=== PATIENT | female | born 1995 | race Caucasian/White ===

== ENCOUNTER → 2019-05-11 16:08 | Outpatient (CLI) | payer BC, SELFPAY ==
--- NOTE | ~2019-05-11 | XR_ITS ---
XR foot LT min 3V DATE: 05/11/2019 16:21 INDICATION: Foot pain TECHNIQUE: 4 views COMPARISON: None FINDINGS: There is mild osteoarthritis at the first metatarsophalangeal joint. No fracture, dislocation, periosteal reaction or bone destruction is detected. IMPRESSION: Mild osteoarthritis at first metatarsophalangeal joint Reviewed, dictated and finalized at location B. 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
== END ==
PROVIDERS: PCP Nurse Practitioner Family; Visit Provider Nurse Practitioner Family
DX: M19.072 Primary osteoarthritis, left ankle and foot (principal)
CPT/HCPCS: 73630

== ENCOUNTER 2019-10-01 11:24 | Outpatient (CLI) | payer BC, SELFPAY ==
--- NOTE | ~2019-10-01 | XR_ITS ---
XR hysterosalpingogram 10/01/2019 12:25 Indication: Infertility TECHNIQUE: Hysterosalpingogram was performed by Dr. Annamarie Swann MD with fluoroscopic ann christian. I was present to obtain fluoroscopic images.4 fluoroscopic images. DAP is 3.45. 0.2 minutes of f luoroscopy. FINDINGS: Fluoroscopic images demonstrates normal appearing endometrial cavity which has been cannula courtney. Upon injection of contrast, both fallopian tubes opacify and are normal in appearance. There i s free spillage bilaterally. Uterus is without evidence of synechia. IMPRESSION: 1: Patent fallopian tubes. Reviewed, dictated and finalized at location A. IMPRESSION: 1: Patent fallopian tubes.
== END 2019-10-01 11:25 | disposition home or self-care (01) ==
PROVIDERS: PCP Nurse Practitioner Family; Visit Provider Obstetrics & Gynecology Gynecology
DX: Z31.41 Encounter for fertility testing (principal)
CPT/HCPCS: 58340; 74740; Q9966

== ENCOUNTER → 2020-11-13 13:46 | Outpatient (CLI) | payer BC, SELFPAY ==
--- NOTE | ~2020-11-13 | US_ITS ---
EXAMINATION: US OB <= 14 weeks fetus DATE: 11/13/2020 14:07 INDICATION: Spotting during first trimester TECHNIQUE: Real-time ultrasound of the pelvis was performed. COMPARISON: None. FINDINGS: There is a single living fetus in variable presentation. The placenta is anterior and covers the inte rnal cervical os. heart rate is 151 beats per minute (bpm). cardiac activity and m ovement are noted. The following biometric data were obtained: Biparietal diameter (BPD): 2.5 cm; head circumference (HC): 10.3 cm; abdominal circumference (AC): 7. 6 cm; femur length (FL): 1.3 cm. These measurements are concordant. Estimated weight is 88 g +/- 13 g, which correlates with the 14th percentile when 05/11/2021 is u sed as estimated date of delivery. As single measurements, these parameters are each equal to the following estimated gestational ages w ith ranges of +/- 2 standard deviations: BPD: 14 weeks 1 days ( 3 weeks 1 days - 15 weeks 4 days). HC: 14 weeks 6 days ( 13 weeks 4 days - 16 weeks 0 days). AC: 14 weeks 1 days ( 12 weeks 3 days - 15 weeks 5 days). FL: 13 weeks 6 days ( 12 weeks 3 days - 15 weeks 1 days). estimated gestational age based solely on measurements from this exam is 14 weeks 2 days +/- 1 weeks 0 days. IMPRESSION: 1. Single living fetus in variable presentation. 2. Estimated weight is 88 g +/- 13 g, which correlates with the 14th percentile when 05/11/2021 i s used as estimated date of delivery. 3. Placenta previa Reviewed, dictated and finalized at location B. IMPRESSION: 1. Single living fetus in variable presentation. 2. Estimated weight is 88 g +/- 13 g, which correlates with the 14th perc entile when 05/11/2021 is used as estimated date of delivery. 3. Placenta previa
== END ==
PROVIDERS: Visit Provider Nurse Practitioner
DX: O26.851 Spotting complicating pregnancy, first trimester (principal); Z3A.14 14 weeks gestation of pregnancy
CPT/HCPCS: 76801

== ENCOUNTER → 2020-12-11 10:29 | Outpatient (CLI) | payer BC, SELFPAY ==
--- NOTE | ~2020-12-11 | US_ITS ---
EXAMINATION: US OB /maternal detail EXAM DATE: 12/11/2020 11:03 INDICATION: Complete placenta previa NOS or without hemorrhage, ANATOMY . 2nd trimester. TECHNIQUE: Pelvic obstetrical transabdominal sonogram was performed by a technologist. There are mu ltiple grayscale and Doppler images available for interpretation. Comparison is made to prior examina tion from 11/13/2020. FINDINGS: There is a single fetus identified in vertex presentation with a heart rate of 141 beats pe r minute. The placenta is located in the anterior position. Placental margin to internal cervical os distance is 6.5 cm. There is no sonographic evidence of retroplacental hemorrhage identified. There i s subjectively expected amount of amniotic fluid. BIOMETRIC DATA: Biparietal diameter (BPD): 4.0 cm ----------------> 18 weeks 1 day. Head circumference (HC): 15.4 cm ----------------> 18 weeks 2 days. Abdominal circumference (AC): 12.7 cm ----------> 18 weeks 2 days. Femur length (FL): 2.6 cm --------------------------> 17 weeks 6 days. These measurements are concordant. HC/AC ratio is 1.21 (The 5th -- 95th percentile range is 1.08-1.27. Estimated weight is 225 g +/- 34 g. This is the 36th percentile when the currently reported cl inical gestation age 18 weeks 2 days, clinical estimated date of delivery (TOBY-OPE) 05/12/2021 is used. estimated gestational age based on measurements from this exam is 18 weeks 1 day, with an adam mated date of delivery (TOBY-AUA) 05/13. ANATOMIC SURVEY: The following anatomy is identified and is sonographically normal in appearance: Extremities Kidneys Three-vessel cord Bladder Diaphragm Cervical thoracic and lumbar spine. Following structures not well visualized ventricles, cerebellum, cisterna magna, nuchal fold, upper l ip, heart. IMPRESSION: 1. Single fetus in vertex presentation with heart rate 141 beats per minute. 2. Estimated weight of 225 grams, 36th percentile using the currently reported clinical gestat ion age of 18 weeks 2 days, TOBY(OPE) 05/12. 3. Anteriorly located placenta. 4. Incomplete anatomic survey. Reviewed, dictated and finalized at location A. IMPRESSION: 1. Single fetus in vertex presentation with heart rate 141 beats per minute. 2. Estimated weight of 225 grams, 36th percentile using the currently re ported clinical gestation age of 18 weeks 2 days, TOBY(OPE) 05/12. 3. Anteriorly located placenta. 4. Incomplete anatomic survey.
== END ==
PROVIDERS: Visit Provider Obstetrics & Gynecology Gynecology
DX: O44.02 Complete placenta previa NOS or without hemorrhage, second trimester (principal); Z3A.00 Weeks of gestation of pregnancy not specified
CPT/HCPCS: 76805

== ENCOUNTER → 2021-01-08 11:20 | Outpatient (CLI) | payer OTHER, SELFPAY ==
--- NOTE | ~2021-01-08 | US_ITS ---
US OB follow up DATE: 01/08/2021 12:09 INDICATION: anatomy follow-up TECHNIQUE: Real-time imaging and Doppler analysis COMPARISON: 12/11/2020 obstetrical ultrasound; the ventricles, cerebellum, cisterna magna, nuchal fold, upper lip and heart were not well visualized on 12/11/2020 obstetrical ultrasound examination FINDINGS: Live arango intrauterine gestation, fetus in vertex presentation. heart rate of 13 8 bpm. Anterior placenta, lower margin 8.1 cm above the internal os. Subjectively normal amount of amniotic fluid. Nuchal fold appears normal. Cisterna magna and cerebellum appear normal. No cerebral ventriculo megaly is evident. 4 chamber heart. IMPRESSION: Unremarkable anatomy screen Reviewed, dictated and finalized at Location A. Reviewed, dictated and finalized at location A. IMPRESSION: Unremarkable anatomy screen
== END ==
PROVIDERS: Visit Provider Obstetrics & Gynecology Gynecology
DX: Z36.2 Encounter for other antenatal screening follow-up (principal); Z3A.00 Weeks of gestation of pregnancy not specified
CPT/HCPCS: 76816

== ENCOUNTER → 2021-03-19 10:48 | Outpatient (CLI) | payer OTHER, SELFPAY ==
--- NOTE | ~2021-03-19 | US_ITS ---
EXAMINATION: US OB follow up DATE: 03/19/2021 11:10 INDICATION: Size greater than dates during third trimester TECHNIQUE: Real-time ultrasound of the pelvis was performed. The interpreting radiologist was not pre sent for the study. COMPARISON: 01/08/2021 FINDINGS: There is a single living fetus in transverse lie. The placenta is anterior and 3.6 cm from the internal cervical os. cardiac activity and movement are noted. heart rate is 14 0 beats per minute (bpm). The amniotic fluid index is 12.3 cm which is normal. The following biometric data were obtained: Biparietal diameter (BPD): 8.5 cm; head circumference (HC): 30.3 cm; abdominal circumference (AC): 30 .2 cm; femur length (FL): 6.0 cm. These measurements are the femoral length to abdominal circumference ratio and femoral length to bipa rietal diameter ratio greater than two standard deviations below the mean. Estimated weight is 2173 g +/- 325 g, which correlates with the 74th percentile when 05/12/2021 i s used as estimated date of delivery. As single measurements, these parameters are each equal to the following estimated gestational ages w ith ranges of +/- 2 standard deviations: BPD: 34 weeks 2 days ( 31 weeks 2 days - 37 weeks 3 days). HC: 33 weeks 5 days ( 30 weeks 5 days - 36 weeks 5 days). AC: 34 weeks 1 days ( 31 weeks 1 days - 37 weeks 1 days). FL: 31 weeks 2 days ( 28 weeks 3 days - 34 weeks 2 days). estimated gestational age based solely on measurements from this exam is 33 weeks 3 days +/- 2 weeks 2 days. IMPRESSION: 1. Single living fetus in transverse lie. 2. Estimated weight is 2173 g +/- 325 g, which correlates with the 74th percentile when 2 is used as estimated date of delivery. 3. Femoral length to abdominal circumference ratio and femoral length to biparietal diameter ratio gr eater than two standard deviations below the mean. Reviewed, dictated and finalized at location A. 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 Single living fetus in transverse lie. 2. Estimated weight is 2173 g +/- 325 g, which correlates with the 74th p ercentile when 05/12/2021 is used as estimated date of delivery. 3. Femoral length to abdominal circumference ratio and femoral length to bipari etal diameter ratio greater than two standard deviations below the mean.
== END ==
PROVIDERS: Visit Provider Obstetrics & Gynecology Gynecology
DX: O36.63X0 Maternal care for excessive fetal growth, third trimester, not applicable or unspecified (principal); Z3A.33 33 weeks gestation of pregnancy
CPT/HCPCS: 76816

== ENCOUNTER → 2021-04-30 11:17 | Outpatient (CLI) | payer OTHER, SELFPAY ==
--- NOTE | ~2021-04-30 | US_ITS ---
EXAMINATION: US OB follow up DATE: 04/30/2021 11:36 INDICATION: Size greater than dates. TECHNIQUE: Real-time ultrasound of the pelvis was performed. COMPARISON: Ultrasound 03/19/2021 FINDINGS: There is a single living fetus in vertex presentation. The placenta is anterior, 10.8 cm from the ce rvix. heart rate is 140 beats per minute (bpm). The amniotic fluid index is 11.2, which is norm al. The following biometric data were obtained: Biparietal diameter (BPD): 9.4 cm; head circumference (HC): 33.5 cm; abdominal circumference (AC): 37 .6 cm; femur length (FL): 7.0 cm. These measurements are discordant with FL/AC lower than 2 standard deviations of the mean. Estimated weight is 3862 g +/- 570 g, which correlates with the 91st percentile when 05/12/21 is used as estimated date of delivery. As single measurements, these parameters are each equal to the following estimated gestational ages w ith ranges of +/- 2 standard deviations: BPD: 38 weeks 3 days (35 weeks 1 days - 41 weeks 4 days). HC: 38 weeks 2 days (35 weeks 4 days - 41 weeks 0 days). AC: 41 weeks 4 days (38 weeks 4 days - 44 weeks 4 days). FL: 35 weeks 6 days (33 weeks 0 days - 38 weeks 6 days). estimated gestational age based solely on measurements from this exam is 38 weeks 4 days +/- 2 weeks 5 days. IMPRESSION: 1. Single living fetus in vertex presentation. 2. Large for gestational age. Estimated weight is 3862 g +/- 570 g, which correlates with the 91st percentile when 05/12/21 is used as estimated date of delivery. This date was set by ultrasound on 11/13/2020. 3. Discordant biometrics with low FL/AC. Reviewed, dictated and finalized at location A. OGRAPHER IMPRESSION: 1. Single living fetus in vertex presentation. 2. Large for gestational age. Estimated weight is 3862 g +/- 570 g, whic h correlates with the 91st percentile when 05/12/21 is used as estimated date of delivery. This date was set by ultrasound on 11/13/2020. 3. Discordant biometrics with low FL/AC.
== END ==
PROVIDERS: Visit Provider Obstetrics & Gynecology Gynecology
DX: O36.63X3 Maternal care for excessive fetal growth, third trimester, fetus 3 (principal); Z3A.38 38 weeks gestation of pregnancy
CPT/HCPCS: 76816

== ENCOUNTER 2021-05-03 08:25 | Outpatient (RCR) | payer OTHER, SELFPAY ==
[2021-04-19 08:24] VITALS: BP 121/77; PULSE 92
[2021-04-21 16:43] VITALS: BP 137/86; PULSE 83
[2021-04-26 08:50] VITALS: BP 120/74; PULSE 90
[2021-04-28 17:27] LABS: Basophils Percent Auto 0.2 % (0.2-1.2); Eosinophils Absolute Auto 0.1 K/mm3 (0-0.3); Eosinophils Percent Auto 0.8 % (0-4.4); Hematocrit 35.7 % (37.0-47.0); Hemoglobin 11.5 g/dL (12.0-15.0); Immature Granulocyte Absolute 0.06 K/mm3 (0.00-0.031); Immature Granulocyte Percent A 0.5 % (0-0.5); Lymphocytes Absolute Auto 2.52 K/mm3 (0.9-3.2); Lymphocytes Percent Auto 19.4 % (18.3-44.2); Mean Corpuscular HGB Conc 32.2 g/dl (32-36); Mean Corpuscular Hemoglobin 31.3 pg (26-34); Mean Platelet Volume 11.9 fl (7.4-10.4); Monocytes Absolute Auto 1.3 K/mm3 (0.1-0.6); Monocytes Percent Auto 9.8 % (2.6-8.5); Neutrophils Percent Auto 69.3 % (45.5-73.1); Platelet Count Result 249 k/mm3 (150-375); Red Blood Count 3.68 M/mm3 (4.2-5.4); Red Cell Distribution Width 14.5 % (11.5-14.5)
[2021-04-28 17:43] LABS: Alanine Aminotransferase 15 U/L (4-35); Albumin Level 3.6 g/dL (3.5-5.1); Alkaline Phosphatase 122 U/L (38-126); Anion Gap 6 mmol/L (8-16); Aspartate Amino Transferase 22 U/L (14-36); Bilirubin,Total 0.3 mg/dL (0.2-1.3); Blood Urea Nitrogen 11 mg/dL (7-17); Calcium 9.2 mg/dL (8.4-10.2); Carbon Dioxide 24 mmol/L (22-30); Chloride 105 mmol/L (98-107); Estimated Glomerular Filt Rate > 60; Glucose 104 mg/dL (65-110); Sodium 135 mmol/L (137-145); Uric Acid 4.6 mg/dL (2.5-7.5)
[2021-04-28 17:50] LABS: Add Urine Microscopic? YES; Appearance Urine Clear (Clear); Bacteria Urine 1+ /hpf; Bilirubin Urine Negative (Negative); Blood Urine Negative (Negative); Color Urine Yellow (Yellow); Glucose Urine UA Negative (Negative); Ketones Urine Trace mg/dL (Negative); Leukocyte Esterase Ur 1+ LEU/UL (NEGATIVE); Mucus Urine Rare /lpf; Nitrate Urine Negative (Negative); Protein Urine Negative (Negative); Specific Grav Ur 1.028 (1.001-1.035); Squamous Epithelial Cell Urine Moderate /hpf (Few); Urobilinogen Urine Negative mg/dL (<2.0)
[2021-04-28 18:13] LABS: Creatinine Urine 195.5 mg/dL
[2021-04-28 18:21] LABS: Total Protein Urine Random < 5 mg/dL; Ur Ttl Prot Creatinine Ratio < 0.03 mg/mg (0-0.20)
[2021-04-28 18:30] VITALS: BP 122/87; PULSE 98
[2021-05-03 09:05] VITALS: BP 134/81; PULSE 109
== END 2021-05-26 09:31 | disposition home or self-care (01) ==
LOC: ANHOBOP 08:25
PROVIDERS: Visit Provider Obstetrics & Gynecology Gynecology
DX: O24.419 Gestational diabetes mellitus in pregnancy, unspecified control (principal); Z3A.36 36 weeks gestation of pregnancy; Z3A.37 37 weeks gestation of pregnancy; Z3A.38 38 weeks gestation of pregnancy
CPT/HCPCS: 36415; 59025; 80053; 81001; 82570; 84156; 84550; 85025; 87086; 87088

== ENCOUNTER 2021-05-04 23:49 | Inpatient (IN) | payer OTHER, SELFPAY ==
[2021-05-05] VITALS (137 sets, daily range): BP systolic 107–180; BP diastolic 55–114; PULSE 25–139; TEMP 36.2–37.5; O2SAT 96–100; BMI 48.7
--- NOTE | 2021-05-05 00:39 | LDADM ---
This patient, Rita Smith, was admitted to Labor/Delivery/Recovery 109 on 05/04/21 at 23:49. Plans for labor, pain management and were discussed with patient. Patient/family oriented to hospital policies and general routines including ID bracelet, bed and alarms, visiting hours, pain management, procedures, bathroom and other care routines, personal items, smoking policy, room service/diet and guest tray routines, security routines, and visiting hours. Patient/Family are encouraged to report perceived risks to care and to ask questions if they do not understand what they are told or what they should do. See OBIX for further documentation.
[2021-05-05 00:50] LABS: Basophils Percent Auto 0.2 % (0.2-1.2); Eosinophils Absolute Auto 0.1 K/mm3 (0-0.3); Eosinophils Percent Auto 0.7 % (0-4.4); Hematocrit 35.4 % (37.0-47.0); Hemoglobin 11.7 g/dL (12.0-15.0); Immature Granulocyte Percent A 0.7 % (0-0.5); Lymphocytes Absolute Auto 2.69 K/mm3 (0.9-3.2); Lymphocytes Percent Auto 20.1 % (18.3-44.2); Mean Corpuscular HGB Conc 33.1 g/dl (32-36); Mean Corpuscular Volume 96.7 fl (80-100); Mean Platelet Volume 11.9 fl (7.4-10.4); Monocytes Absolute Auto 1.2 K/mm3 (0.1-0.6); Monocytes Percent Auto 9.1 % (2.6-8.5); Neutrophils Absolute Auto 9.3 K/mm3 (1.3-6.7); Neutrophils Percent Auto 69.2 % (45.5-73.1); Platelet Count Result 244 k/mm3 (150-375); Red Blood Count 3.66 M/mm3 (4.2-5.4); Red Cell Distribution Width 14.6 % (11.5-14.5); White Blood Count 13.4 K/mm3 (4.5-10.0)
[2021-05-05] MEDS: LACTATED RINGERS 1,000 ML 125 ML IV CONT ×3 (02:07→21:54)
[2021-05-05] MEDS: AMPICILLIN 2 GM/NS 100 ML 2 GM/100 ML BAG IVPB (02:08)
[2021-05-05] MEDS: DINOPROSTONE 10 MG VAG INSERT VAGINAL (02:12)
[2021-05-05 02:18] LABS: Glucose Point of Care 104 mg/dl (65-105)
[2021-05-05] MEDS: AMPICILLIN 1 GM/NS 50 ML 1 GM/50 ML BAG IVPB ×5 (06:19→21:51)
[2021-05-05 06:22] LABS: Glucose Point of Care 86 mg/dl (65-105)
--- NOTE | 2021-05-05 07:42 | WPDOBADMIT ---
Obstetrics - Admit Note Admission Note: record reviewed. No pertinent additions to the history and/or any subsequent changes in the physical findings that are not consistent with the expected course of the were found. Additions to the history and/or subsequent changes in the physical findings follow. None.Here for MIL at 39 wks with GDMA2. Cervix FT/th last pm per RN when cervadil placed. FHTs reactive.
[2021-05-05 10:33] LABS: Glucose Point of Care 97 mg/dl (65-105)
--- NOTE | 2021-05-05 12:36 | PM.OBPNLAB ---
Pain Control Date/time seen: 05/05/21 12:36 Pain control: tolerating well Pelvic Exam Dilation (cm): 1 Effacement (%): 70 station: -3 Comments: Cervadil removed. AROM with clear fluid. Status status: Category l Assessment and Plan Assessment: induction ongoing Comments: start pitocin
[2021-05-05 12:58] LABS: Glucose Point of Care 105 mg/dl (65-105)
[2021-05-05] MEDS: OXYTOCIN 30 UNITS/NS 500 ML 30 UNITS/500 ML BAG IV CONT (13:14)
[2021-05-05 16:49] LABS: Rapid Plasma Reagin Non-Reactive (NonReactive)
[2021-05-05 17:16] LABS: Glucose Point of Care 76 mg/dl (65-105)
--- NOTE | 2021-05-05 19:26 | WPDANESEPP ---
Anes - Eval Pre Procedure Procedure: Labor epidural Date/Time: 05/05/21 19:26 Surgeon: Hari pain with contractions Pre Op Diagnosis: IOL Patient Data Age: 26 Gender: F Height: 1.65 m Weight: 133 kg Last Vital Signs Temp 98 F 05/05/21 18:09 Pulse 98 05/05/21 19:17 BP 149/105 H 05/05/21 19:17 Allergies Allergy/AdvReac Type Severity Reaction Status Date / Time No Known Allergies Allergy Mild Unverified 03/21/08 20:46 Home Medications Medication Instructions Recorded Confirmed Type metformin 500 mg tablet 500 mg PO DAILY 05/07/19 04/16/21 History PNV cmb#95-ferrous fumarate-FA 1 tablet PO DAILY 04/16/21 04/16/21 History [] insulin NPH isoph U-100 human 12 unit SUBCUT HS 05/05/21 05/05/21 History [Humulin N NPH U-100 Insulin] Laboratory Tests 05/05/21 05/05/21 05/05/21 00:35 00:35 00:35 WBC 13.4 K/mm3 H K/mm3 (4.5-10.0) RBC 3.66 M/mm3 L M/mm3 (4.2-5.4) Hgb 11.7 g/dL L g/dL (12.0-15.0) Hct 35.4 % L % (37.0-47.0) MCV 96.7 fl fl (80-100) MCH 32.0 pg pg (26-34) MCHC 33.1 g/dl g/dl (32-36) RDW 14.6 % H % (11.5-14.5) Plt Count 244 k/mm3 k/mm3 (150-375) MPV 11.9 fl H fl (7.4-10.4) Immature Gran % (Auto) 0.7 % H % (0-0.5) Neut % (Auto) 69.2 % % (45.5-73.1) Lymph % (Auto) 20.1 % % (18.3-44.2) Stanton % (Auto) 9.1 % H % (2.6-8.5) Eos % (Auto) 0.7 % % (0-4.4) Baso % (Auto) 0.2 % % (0.2-1.2) Lymph # (Auto) 2.69 K/mm3 K/mm3 (0.9-3.2) Stanton # (Auto) 1.2 K/mm3 H K/mm3 (0.1-0.6) Eos # (Auto) 0.1 K/mm3 K/mm3 (0-0.3) Baso # (Auto) 0.0 K/mm3 K/mm3 (0.0-0.1) Abs Immat Gran (auto) 0.10 K/mm3 H K/mm3 (0.00-0.031) Absolute Neuts (auto) 9.3 K/mm3 H K/mm3 (1.3-6.7) Absolute Nucleated RBC 0.0 K/mm3 K/mm3 (0.0-0.012) Nucleated RBC % 0.0 % % (0.0-0.2) POC Capillary Glucose RPR Non-reactive (NonReactive) Blood Type O Positive Antibody Screen Negative 05/05/21 05/05/21 05/05/21 02:04 06:18 10:30 WBC RBC Hgb Hct MCV MCH MCHC RDW Plt Count MPV Immature Gran % (Auto) Neut % (Auto) Lymph % (Auto) Stanton % (Auto) Eos % (Auto) Baso % (Auto) Lymph # (Auto) Stanton # (Auto) Eos # (Auto) Baso # (Auto) Abs Immat Gran (auto) Absolute Neuts (auto) Absolute Nucleated RBC Nucleated RBC % POC Capillary Glucose 104 mg/dl mg/dl 86 mg/dl mg/dl 97 mg/dl mg/dl (65-105) (65-105) (65-105) RPR Blood Type Antibody Screen 05/05/21 05/05/21 12:55 17:10 WBC RBC Hgb Hct MCV MCH MCHC RDW Plt Count MPV Immature Gran % (Auto) Neut % (Auto) Lymph % (Auto) Stanton % (Auto) Eos % (Auto) Baso % (Auto) Lymph # (Auto) Stanton # (Auto) Eos # (Auto) Baso # (Auto) Abs Immat Gran (auto) Absolute Neuts (auto) Absolute Nucleated RBC Nucleated RBC % POC Capillary Glucose 105 mg/dl mg/dl 76 mg/dl mg/dl (65-105) (65-105) RPR Blood Type Antibody Screen Patient hx anesthesia problems: none Family hx anesthesia problems: none Results Review: All pre-operative results and documents have been reviewed as part of the pre-operative evaluation. [facility] Past Medical History Medical History (Reviewed 05/05/21 @ 19:[address]
[2021-05-05 21:59] LABS: Glucose Point of Care 72 mg/dl (65-105)
[2021-05-06] VITALS (117 sets, daily range): BP systolic 104–179; BP diastolic 42–125; PULSE 78–132; RESP 18; TEMP 36.4–37.4; O2SAT 79–100
[2021-05-06] MEDS: AMPICILLIN 1 GM/NS 50 ML 1 GM/50 ML BAG IVPB ×2 (02:04→05:57)
[2021-05-06 02:15] LABS: Glucose Point of Care 82 mg/dl (65-105)
--- NOTE | 2021-05-06 06:49 | PM.OBPRVD ---
OB - Delivery Note Procedure Delivery date: 05/06/21 Procedure: events: Gestational Diabetes and Labor Induction Intrapartal events: None Induction method: AROM, per pitocin protocol and per cervidil protocol Delivery monitor: external FHT and internal uterine Route of delivery: Laceration Description: Perineal - 2nd Degree Delivery repair: vicryl (3-0) Specimen: No Quantitative Blood Loss (ml): 350 Anesthesia type: Epidural Disposition: floor Baby Date of : 05/06/21 Weeks of gestation at delivery: 39 gender: Female Weight (pounds): 7 Weight (ounces): 15 presentation: vertex position: Right Occiput Anterior Placenta delivery description: Spontaneous cord vessel description: 3 Vessels score one minute: 9 score five minutes: 9
--- NOTE | 2021-05-06 06:51 | PM.OBDSVD ---
DS: Admitting Diagnosis Discharge Date 05/08/21 Admitting Diagnosis GDMA2; IUP 39 wks for SARAH DS: Discharge Diagnosis Discharge Diagnosis (1) (normal spontaneous vaginal delivery): Code(s): O80 - Encounter for full-term uncomplicated delivery Status: Acute (2) GDM, class A2: Code(s): O24.419 - Gestational diabetes mellitus in , unspecified control Status: Acute OB - DS: Summary OB Procedures : NST and Ultrasound OB Procedures Intrapartum: Spontaneous Vag Delivery OB Procedures: : None Peripartum Data Delivery Method: Natural Vaginal Laceration Description: Perineal - 2nd Degree complications: none Status at Discharge Functional status at discharge: independent ambulation Overall status at discharge: patient is progressing back to baseline Time Spent with Patient Time attestation: Total time spent providing and/or coordinating discharge services: DS: Data Data Completed and Pending Labs on day of discharge: Labs from last 24 hours 05/06/21 05/05/21 05/05/21 02:05 21:51 17:10 POC Capillary Glucose 82 72 76 RPR 05/05/21 05/05/21 05/05/21 12:55 10:30 00:35 POC Capillary Glucose 105 97 RPR Non-reactive Discharge Plan Discharge Attending physician on discharge: Annamarie Swann Discharging Clinician: Annamarie Swann Anticipated Discharge Date/Time: 05/08/21 06:52 Patient Disposition: Home, Self-Care Activity: may shower and pelvic rest Diet: regular Patient Instructions: Antibiotic Form Stand Alone Forms: General Discharge Information Follow-up/Referrals: Annamarie Swann MD [Physician] - 6 Weeks Discharge Medications: Continued metformin 500 mg tablet 500 mg PO DAILY RF: 0 PNV cmb#95-ferrous fumarate-FA [] 28 mg iron- 800 mcg Tablet 1 tablet PO DAILY RF: 0 Discontinued Humulin N NPH U-100 Insulin 100 unit/mL suspension 12 unit SUBCUT HS RF: 0 Date of admission: 05/04/21 23:49 Primary Care Provider: Edgar Kong Admitting Provider: Annamarie Swann Attending physician on admission: Annamarie Swann Condition: Stable Care Plan Goals: Plans condoms for bc
[2021-05-06] MEDS: OXYTOCIN 30 UNITS/NS 500 ML 30 UNITS/500 ML BAG 999 UNITS IV CONT (06:53)
[2021-05-06] MEDS: IBUPROFEN 600 MG TABLET PO ×2 (08:59→17:25)
[2021-05-06] MEDS: BENZOCAINE 20% AER SPR (*SP) 56 GM CAN 1 SPRAY TOPICAL (09:00)
[2021-05-06] MEDS: WITCH HAZEL 40 PADS 1 PAD TOPICAL (09:00)
--- NOTE | 2021-05-06 09:50 | OBPPTRN ---
Patient transferred to post room # 280 via wheelchair accompanied by spouse and . PT and Support person present and both recipients of introductions and education. No barriers to learning identified at this time. PT and spouse received instructions per one to one discussion, mom baby care guide and demonstrations this shift. Oriented to unit, room, information board, rooming in, admission packet and security measures. Patient verbalizes understanding.
--- NOTE | 2021-05-06 14:33 | PC.NURSE ---
0720 - Reported to RN 40 min went well. 1125 - 1215 Introductions were made and mother led the discussion of her desires and plans for feeding her baby. Mom has a history of PCOS and bilateral breast have peau d' orange present that mom states has been there since . Mom has large breast with flat nipple that ora between a grade 1-2. Reviewed handwashing to prevent infection before and after taking care of her baby. Mother verbalizes she is unable to independently latch at this time. Discussed how to watch for early feeding cues, place infant skin to skin, stimulating with touch, talk and hand expressed colostrum, then feeding baby when infant is ready or every 2-3 hours. Mother demonstrated learning of hand expression with no colostrum at this time. Educated parents on the production of milk. Reviewed positioning/alignment with the use of the visuals in the mom and baby guide. Encouraged mother with infant skin to skin, nipple stretching and hand expression. Assisted mom with infant to the right breast in football position using nipple to nose with asymmetrical 140-degree latch. attempts to latch, mom denies pain, RN hears clicking, detached and nipple misshaped. Multiple attempts to achieve effective latching on both breast. Reviewed there is to be no pain with , how to detach from the breast, visuals to watch for to confirm effective . Reviewed effective latching with resources tool/handout/mom and baby guide. Nipple tenderness is relieved with improving positioning and effective latching which is rare. has wide gape, sometimes takes 1-3 effective sucks, then repositions to the nipple. Multiple attempts for 30 min. Mom is hungry and tired. Infant placed skin to skin. Use of warm, wet compress to nipples and air dry for improved comfort. was unable to maintain effective latch. Discussed risks and benefits of tools and supplementing. Reviewed intake, output, weight, jaundice and blood sugar of infant. Reviewed moms medical history, labor experience, expectations and milk production. Mother has verbalized understanding watching for feeding cues for responsive feeding or how to stimulate to initiate from the start of the last feeding. Mother voiced understanding to feed when she sees feeding cues, 8-12 times in 24 hours approximately every 2-3 hours from the start of the last feeding or she has discomfort with nursing. Reported to primary RN.
[2021-05-06] MEDS: DOCUSATE SODIUM 100 MG CAPSULE PO (17:25)
[2021-05-06] MEDS: LANOLIN (LANSINOH) 7.5 GM CREAM 1 APPLIC TOPICAL (17:26)
[2021-05-06] MEDS: ACETAMINOPHEN 325 MG TABLET 650 MG PO (17:27)
[2021-05-07 04:58] LABS: Hematocrit 27.3 % (37.0-47.0); Hemoglobin 8.8 g/dL (12.0-15.0)
[2021-05-07 05:02] VITALS: BP 129/78; PULSE 95; RESP 18; TEMP 36.1; O2SAT 100
--- NOTE | 2021-05-07 07:40 | WPDANLDPN2 ---
Anes-Prog Note L&D Date/Time: 05/07/21 07:40 Comfortable throughout: labor and delivery Neuraxial method: epidural Neuro status: Neuro function grossly intact. Cardiovascular status: normal Vital Signs: Last Vital Signs Temp 36.1 C L 05/07/21 05:02 Pulse 95 05/07/21 05:02 Resp 18 05/07/21 05:02 BP 129/78 05/07/21 05:02 Pulse Ox 100 05/07/21 05:02 Pain score (VAS): 0 I/O: Intake & Output 05/06/21 05/06/21 05/07/21 15:59 23:59 07:59 Output Total 620 Balance -620 Post-procedural complaints: none Patient feedback: Patient satisfied with anesthetic care.
[2021-05-07 08:05] VITALS: BP 127/87; PULSE 101; RESP 18; TEMP 36.6; O2SAT 98
[2021-05-07] MEDS: IBUPROFEN 600 MG TABLET PO ×2 (08:28→17:18)
[2021-05-07] MEDS: MULTIVIT/MIN/PREN/FOL AC/IRON TABLET 1 TAB PO (08:28)
[2021-05-07] MEDS: ACETAMINOPHEN 325 MG TABLET 650 MG PO ×3 (08:29→23:03)
[2021-05-07 08:30] VITALS: PULSE 101; RESP 18; O2SAT 98
[2021-05-07] MEDS: DOCUSATE SODIUM 100 MG CAPSULE PO ×2 (08:30→17:18)
[2021-05-07] MEDS: POLYSACCHARIDE IRON COMPLEX 150 MG CAPSULE PO ×2 (08:30→17:19)
--- NOTE | 2021-05-07 08:30 | PC.NURSE ---
ntroductions made and plan of care discussed per post , pain management, breast feeding, daily care activities. PT oriented to room and surrounding area. PT and significant other both recipients of instructions and no barriers to learning identified at this time. PT received instructions this shift via one to one discussion, mom baby care guide and demonstrations. Oriented to unit, room, information board, rooming in, admission packet and security measures. Patient verbalizes understanding.
--- NOTE | 2021-05-07 11:28 | PC.NURSE ---
2778 - Mother led the discussion of her experience of feeding her baby so far. Reviewed handwashing to prevent infection before and after taking care of her baby. Mother verbalizes she is able to independently latch . She states nurses better on one side than the other and one side has a nipple that is a little tender. Discussed how to watch for early feeding cues, place skin to skin, then feeding baby when infant is ready or every 2-3 hours. Reviewed positioning/alignment using nipple to nose with asymmetrical 140-degree latch with the use of the visual handouts/mom and baby guide. Reviewed there is to be no pain with , how to detach infant from the breast, visuals to watch for to confirm effective . Reviewed effective latching with resources tool/handout/mom and baby guide. Reinforced milk production education. Nipple tenderness is relieved with improving positioning and effective latching states mom. Use of warm, wet compress to nipples and air dry for improved comfort. Mother is feeding as needed to meet requirements. Mom believes infant at times doesn't latch optimally and will work with on latching. Mother has verbalized understanding watching for feeding cues for responsive feeding, how to stimulate infant to initiate three hours from the start of the last feeding, 8-12 times in 24 hours approximately every 2-3 hours or she has discomfort with nursing are reasons to call for assistance. Reported to primary RN.
--- NOTE | 2021-05-07 14:44 | PC.NURSE ---
1205 - Attempts made with a nipple shield due to not obtaining an optimal latch. Reviewed attempting to with a nipple shield, good hand washing, care of the nipple shield and application. Risks and benefits discussed regarding nipple shield, pump usage, infection, milk production and there is to not be pain with feeding her or pumping. Referred to resources in the mom and baby guide, website and when to call a provider. The parents voiced understanding of information and to call out for assistance. 1225 - Breast pump provided due to ineffective feedings. Reviewed information regarding pump care, hand washing, nipple care and pumping 8 times in 24 hours (1-2 at night) for 10-15 minutes. Discussed she may want to pump after feedings or between feedings. If after feeding, rest for 5-10 minutes. Get something to eat/drink, use the restroom, then pump. Collection and storage of breastmilk reviewed with resource using the mom and baby guide. Encouraged mom to place skin to skin, breast massage and use hand expression and/or a breast pump in a relaxing atmosphere. Reviewed recording pumping schedule on the feeding sheet. Referred to the visual handout along with the mom and baby guide as a resource and when to call a provider. Parents will call when pumping is completed. 1300 - Dad finger fed colostrum into mouth. Mom and dad desire to supplement with formula. 1345 - Parents fed supplementation.
[2021-05-07 20:00] VITALS: BP 122/92; PULSE 100; RESP 18; TEMP 36.9; O2SAT 99
--- NOTE | 2021-05-08 07:05 | PM.OBPNVD ---
OB - PN: Subj Subjective Date/time seen: 05/08/21 07:05 Patient comments: no complaints and pain well controlled baby status: nursing well OB - PN: Obj Data Labs CBC & Chem 7: 05/07/21 04:13 OB - PN A/P Plan day: 2 Plan: routine care, discharge home and follow up 6 weeks Time Spent With Patient Time: Total time spent is greater than 50% in coordination of care (as documented) at patient's floor/unit and/or counseling patient: Exam : Bimanual exam- vagina & uterus: other (Uterus firm, nt @U)
[2021-05-08 07:10] VITALS: BP 139/90; PULSE 94; RESP 16; TEMP 37; O2SAT 100
--- NOTE | 2021-05-08 11:03 | PC.NURSE ---
Addendum entered by Iqra Burton RN 05/08/21 11:10: Consult was from [id number] Reviewed increasing the volume of supplementation to meet the needs of a growing infant. Parents voiced understanding. Original Note: 0835 - Mother led the conversation with regards to her experience feeding her baby so far. Mother states she is more relaxed with her feeding plan. Reminded parents to use good handwashing to prevent infection. Infant has had appropriate feedings in the past 24 hours and meets the outcomes for weight, output and jaundice. Mother states she feels confident to continue attempt /pumping/supplementing her infant at home. Reviewed production of human milk, transition of milk, signs of adequate intake and engorgement prevention/relief and when to call the care provider using the visual handout and mom and baby guide. Reviewed community resources and outpatient services as listed in the mom and baby guide/[facility] website. Reinforced watching for feeding cues with responsive feeding and how to stimulate infant to initiate feeding three hours from the start of the last feeding. Parents voiced understanding of information shared. Reported to primary RN.
[2021-05-08] MEDS: DOCUSATE SODIUM 100 MG CAPSULE PO (12:00)
[2021-05-08] MEDS: MULTIVIT/MIN/PREN/FOL AC/IRON TABLET 1 TAB PO (12:00)
[2021-05-08] MEDS: IBUPROFEN 600 MG TABLET PO (12:01)
[2021-05-08] MEDS: POLYSACCHARIDE IRON COMPLEX 150 MG CAPSULE PO (12:01)
[2021-05-11 09:31] VITALS: BP 138/84; PULSE 96; RESP 20; TEMP 37.2; O2SAT 100
== END 2021-05-08 14:01 | disposition home or self-care (01) | DRG 807 ==
LOC: ANHLDR 05-06 06:52 → ANHOB2 05-06 09:54
PROVIDERS: Admitting Provider Obstetrics & Gynecology Gynecology; PCP Family Medicine; Visit Provider Obstetrics & Gynecology Gynecology
DX: O24.429 Gestational diabetes mellitus in childbirth, unspecified control (principal); Z37.0 Single live birth; O70.1 Second degree perineal laceration during delivery; O99.824 Streptococcus B carrier state complicating childbirth; O76 Abnormality in fetal heart rate and rhythm complicating labor and delivery; Z3A.39 39 weeks gestation of pregnancy
CPT/HCPCS: 36415; 59025; 82948; 85014; 85018; 85025; 86592; 86850; 86900; 86901; A9270; J0290; J2590; J2795; J7120

== ENCOUNTER 2023-07-02 08:17 | Outpatient (CLI) | payer OTHER, SELFPAY ==
--- NOTE | ~2023-07-02 | MR_ITS ---
MRI of the left ankle Clinical history: Anterior tibial tendinitis Technique: Coronal proton-density and proton-density fat-sat images, axial proton-density and proton- density fat-sat images, and sagittal proton-density and proton-density fat-sat images were acquired. Findings: Syndesmotic ligaments are intact. Anterior and posterior talofibular ligaments, and calcane ofibular ligament are intact. Ultimately ligament is intact. Medial flexor tendons, peroneal tendons, anterior extensor tendons, and Achilles tendon are intact. No osteochondral lesion of the talar dome identified. Bone marrow signals and joint spaces are preser fabian. No joint effusion. Plantar fascia intact. Normal signal preserved in the sinus Tarsi. No soft tissue mass or fluid colle ction identified. Impression: No significant abnormality seen. Tibialis anterior tendon is unremarkable. Reviewed, dictated and finalized at [facility]. Impression: No significant abnormality seen. Tibialis anterior tendon is unremarkable.
== END 2023-07-02 08:18 ==
PROVIDERS: PCP Podiatrist Foot & Ankle Surgery; Visit Provider Podiatrist Foot & Ankle Surgery
DX: M76.812 Anterior tibial syndrome, left leg (principal)
CPT/HCPCS: 73721

== ENCOUNTER 2024-05-30 12:37 | Emergency (ER) | payer OTHER, SELFPAY ==
--- NOTE | ~2024-05-30 | XR_ITS ---
CHEST RADIOGRAPH, PA AND LATERAL CLINICAL HISTORY: Cough x 2 wks, positive flu A, non smoker . COMPARISON: None available TECHNIQUE: PA and lateral views of the chest. FINDINGS The cardiomediastinal silhouette is unremarkable. The lungs are clear. Visualized osseous structures and soft tissues are unremarkable. IMPRESSION: No focal infiltrate or effusion. Reviewed, dictated and finalized at location A. OR ASSISTANT MANAGER
[2024-05-30 12:50] VITALS: BP 130/81; PULSE 111; RESP 16; TEMP 36.8; O2SAT 99
[2024-05-30 12:52] LABS: EDINFLUASCREEN Positive (Negative); EDINFLUBSCREEN Negative (Negative)
[2024-05-30 12:55] LABS: EDCOVIDSCREEN Negative (Negative); EDSTREPNEGPOS1 Negative (Negative)
--- NOTE | 2024-05-30 13:02 | ED_ITS ---
HPI - URI/Sore Throat General Chief Complaint: Upper Respiratory Infection Stated Complaint: Flu test Time Seen by Provider: 05/30/24 13:15 Source: patient and RN notes reviewed Mode of arrival: ambulatory Limitations: no limitations History of Present Illness HPI Narrative: 29-year-old female presents with concern for body aches, chills, fever up to 102, sore throat. She reports head congestion and chest congestion, persistent cough. She reports head congestion and cough started 2 weeks ago but the fever, chills, body aches, sore throat started 2 days ago. She denies trouble breathing MD elicited complaint: cough Related Data Home Medications ?Medication ?Instructions ?Recorded ?Confirmed ?Last Taken ?Type metformin 500 mg tablet 500 mg PO DAILY 05/07/19 05/30/24 Unknown History Allergies Allergy/AdvReac Type Severity Reaction Status Date / Time No Known Allergies Allergy Mild Unverified 05/30/24 12:42 Review of Systems Review of Systems: CONSTITUTIONAL: Reports malaise, chills, sweats, fever. EYES: Denies visual changes, redness, or discharge. ENT: Reports rhinorrhea, congestion, sinus pain, and sore throat. CARDIOVASCULAR: Denies chest pain, palpitations, or edema. RESPIRATORY: Reports cough. Denies dyspnea. GASTROINTESTINAL: Denies abdominal pain, nausea, vomiting, diarrhea SKIN: Denies rash or itching. MUSCULOSKELETAL: Reports myalgia. NEUROLOGIC: Reports headache. All systems reviewed & are unremarkable except as noted in HPI and below PMFSH Past Medical History Medical History Gestational diabetes Morbid obesity Family History Family History Other No pertinent family history Social History Social History Smoking status: Never smoker Alcohol intake: never Substance use: never Spiritual care concerns: No Comments At time of signature, agree with nursing past medical, surgical, social and family history. There is no relevant family history pertinent to the presenting complaint Exam Narrative: GENERAL: Nontoxic-appearing, well-nourished, and in no acute distress. HEAD: Normocephalic EYES: PERRLA, conjunctivae clear ENT: Nares clear. Mucous membranes moist. TM pearly jacob with dull light reflex bilaterally; no tragal tenderness. Oropharynx not erythematous without lesions. Tonsils not enlarged and without exudate, no drooling, no hoarseness, no sohan mus, uvula midline. NECK: Supple. No lymphadenopathy CHEST: Clear to auscultation, breath sounds equal. No wheezing, rhonchi, rales, or stridor. No respiratory distress, speaks in full sentences. HEART: Regular rate and rhythm. No murmur heard. SKIN: Warm, dry, no rash. NEURO: Alert and oriented x3. PSYCH: Normal mood and affect Course Course Emergency Course: Patient is aware of diagnosis, understands and agrees to treatment plan. Anticipatory guidance given. Patient agrees to follow-up as directed and is aware of reasons to seek care at the emergency department. Portions of this record may have been created with voice recognition software Level of Care: Express Care Visit Vital Signs Vital signs: Vital Signs Temperature 98.3 F 05/30/24 12:50 Pulse Rate 111 H 05/30/24 12:50 Respiratory Rate 16 05/30/24 12:50 Blood Pressure 130/81 05/30/24 12:50 Pulse Oximetry 99 05/30/24 12:50 Temperature 98.3 F 05/30/24 12:50 Pulse Rate 111 H 05/30/24 12:50 Respiratory Rate 16 05/30/24 12:50 Blood Pressure 130/81 05/30/24 12:50 Pulse Oximetry 99 05/30/24 12:50 Reviewed. MDM - URI/Sore Throat MDM Narrative Medical decision making narrative: Differential diagnosis considered: Crabtree virus, strep pharyngitis, allergic rhinitis, upper respiratory tract infection, sinusitis, rhinosinusitis, nasopharyngitis. viral pharyngitis, otitis media, otitis externa, pneumonia, bronchitis, viral cough syndrome, viral syndrome, and influenza. Exam findings show no acute concerns or changes; patient is non-toxic appearing and is in no distress. Patient is appropriate for outpatient treatment and follow-up. Lab Data Attestation: I reviewed the patient's lab results. Labs: Lab Results 05/30/24 05/30/24 Range/Units 12:50 12:53 POC Influenza A Ag Positive (Negative) POC Influenza B Ag Negative (Negative) POC SARS CoV-2 Ag Negative (Negative) POC Grp A Strep Screen Negative (Negative) Imaging Data My impression: Images reviewed, interpreted by radiologist, agree, see report. Radiologist's impression: CHEST RADIOGRAPH, PA AND LATERAL CLINICAL HISTORY: Cough x 2 wks, positive flu A, non smoker . COMPARISON: None available TECHNIQUE: PA and lateral views of the chest. FINDINGS The cardiomediastinal silhouette is unremarkable. The lungs are clear. Visualized osseous structures and soft tissues are unremarkable. IMPRESSION: No focal infiltrate or effusion. Critical Care Time Critical Care Time Critical Care Time: No Discharge Plan Discharge Clinical Impression: Influenza A, Cough Patient Disposition: Home, Self-Care Condition: Stable Instructions: Influenza (ED) Additional Instructions: Your x-ray looks normal, does not show pneumonia -Take strict precautions to prevent the spread of your virus. Be diligent about covering your cough (even when you are alone) and washing your hands frequently. -You may contagious until you have been symptom and/or fever free for 24 hours without fever reducing medicine -Alternate Ibuprofen and Tylenol for pain and fever relief (per package directions) -Some Cough medicines may make you drowsy, do not take it if you have to make important decisions, drive, or work. -Drink plenty of fluid - drink fluid with electrolytes such as Gatorade or other oral re-hydration solution. Avoid caffeine, which can make dehydration worse. -Get plenty of rest to help your body heal. -Use a cool mist humidifier for chest and nasal congestion. -Eat RAW honey or use cough drops to ease throat discomfort -Do not smoke or expose children to secondhand smoke -Wash your hands frequently. -Please follow-up with your primary care doctor in the next 1-2 days if your symptoms do not improve. -If you have any worsening of symptoms or any other concerns please go to the ED immediately. -Please take medications as prescribed and continue taking your home medications as usual. Patient Language: Urdu Prescriptions: New promethazine-DM 6.25-15 mg/5 mL syrup 5 ml PO Q4-6H PRN (Reason: cough) Qty: 120 0RF methylprednisolone [Medrol (Alex)] 4 mg tablets,dose pack See Rx Instructions .ROUTE .COMPLEX Qty: 21 0RF Rx Instructions: orally per package directions No Action metformin 500 mg tablet 500 mg PO DAILY Follow-up/Referrals: PHYSICIAN,COMMAND AND CONTROL SPECIALIST [Primary Care Provider] - Stand Alone Forms: Work/School Release IP Time of Disposition: 13:32
== END 2024-05-30 13:40 | disposition home or self-care (01) ==
PROVIDERS: Emergency Provider Nurse Practitioner
DX: J10.1 Influenza due to other identified influenza virus with other respiratory manifestations (principal); R05.9 Cough, unspecified; Z20.822 Contact with and (suspected) exposure to COVID-19; E66.01 Morbid (severe) obesity due to excess calories; Z68.42 Body mass index [BMI] 45.0-49.9, adult
CPT/HCPCS: 71046; 87081; 87426; 87804; 87880; 99213; G0463